=== PATIENT | female | born 1980 | race Caucasian/White ===

== ENCOUNTER 2021-09-15 07:13 | Emergency (ER) | payer BC, SELFPAY ==
[~2021-09-15] VITALS: Ht 154.9 cm; Wt 81.6 kg
[2021-09-15] MEDS ORDERED: ALBUTEROL SULFATE 0.083% 2.5 MG/3 ML VIAL.NEB INH ONE (07:30)
[2021-09-15] MEDS ORDERED: predniSONE 20 MG TABLET PO ONE (07:30)
[2021-09-15] MEDS ORDERED: ALBMDI INH ×2 (07:33→08:37)
[2021-09-15] MEDS ORDERED: PRED20TA PO ×2 (07:33→08:37)
[2021-09-15 07:44] VITALS: BP_SYST 110
--- NOTE | 2021-09-15 07:47 | NUR ---
TRIAGED IN TENT, DR. ARTHUR EXAMINED PT
[2021-09-15] MEDS ORDERED: AZIT-93 PO (08:37)
[2021-09-15 09:01] VITALS: BP_SYST 110
--- NOTE | 2021-09-15 09:03 | NUR ---
Patient given written and verbal discharge instructions and verbalizes understanding. ER MD discussed with patient the results and treatment provided. Patient in stable condition. ID arm band removed. Rx of given. Patient educated on pain management and to follow up with PMD. Pain Scale 0/10 Opportunity for questions provided and answered. Medication side effect fact sheet provided.
== END 2021-09-15 09:01 | disposition home or self-care (01) ==
LOC: SED 07:13
DX: U07.1 COVID-19 (principal); J12.82 Pneumonia due to coronavirus disease 2019; J45.901 Unspecified asthma with (acute) exacerbation; Z79.899 Other long term (current) drug therapy
CPT/HCPCS: 71045; 94640; 99283; J7512; J7613